=== PATIENT | female | born 1995 | race Caucasian/White ===

== ENCOUNTER 2023-06-06 09:17 | Emergency (ER) | payer OTHER, SELFPAY ==
[2023-06-06 09:23] VITALS: BP 122/86
--- NOTE | 2023-06-06 09:54 | ED.GENMED ---
History of Present Illness
General
Chief Complaint: Back Pain
Source: patient
Exam Limitations: none
Time Seen by Provider: 06/06/23 09:34
Nursing documentation reviewed up to this point in time: agreed with
Travel History
Have you had any contact with someone who has COVID-19?: No
Do you have any symptoms of coronavirus? Fever > 100 degrees, chills, cough, shortness of breath, sore throat, loss of taste or smell, muscle aches, or headache?: No
History of Present Illness
History of Present Illness:
28-year-old female past medical history of previous hepatitis C fully treated at this point, anxiety depression previous substance abuse presenting to the emergency department today with concerns of low back discomfort starting yesterday denies any
specific inciting event. No significant radiation of pain made worse with movements and positioning. Denies urinary symptoms or changes in bowel movements fevers chest pain shortness of breath.
Past History
Past History
ED Past Medical History: Other (Hep C); Negative Asthma, HTN, Hypercholesterolemia or NIDDM
ED Past Surgical History: Gynecological (D&C)
Social History
Tobacco: Former smoker
Alcohol: None
Drug: None
Personal: Single
Living: with family
Employment: Other
Family History
Family History: Other (Noncontributory)
Review of Systems
Review of Systems
Allergies reviewed?: Yes
All Other Systems: ROS reviewed and negative except as documented in HPI and ROS
Phy Exam
Physical Exam
Physical Exam:
GENERAL: Alert , in no apparent distress
EYE: pupils equal and reactive
NECK: Supple, no significant adenopathy.
ENT: o/p clr, mmm.
CARDIAC: Regular rate and rhythm .
LUNGS: Clear breath sounds bilaterally, no acute respiratory distress, no wheezes/rales/rhonchi
ABDOMEN: Soft, without focal tenderness, no r/g, no cvat
NEUROLOGICAL: Alert and oriented, no focal neuro deficits
SKIN: Warm and dry, skin intact.
MUSCULOSKELETAL: No edema, well perfused.
PSYCH: Normal and appropriate interaction.
Course
Orders/Labs/Results
Orders:
Orders
06/06/23 09:53
Ibuprofen [Motrin] 800 mg PO NOW STA
Test Result ONCE
Lumbar Spine, 2 or 3 View [CR Lumbar Spine 2 Or 3 Views] Urgent
Comment:
Reason For Exam: low back pain, new
06/06/23 10:00
HCG, Urine Qualitative Screen Urgent
Date Specimen was Collected: 06/06/23
Time Specimen was Collected: 09:55
Urinalysis Urgent
Date Specimen was Collected: 06/06/23
Time Specimen was Collected: 09:55
Urine Microscopic Urgent
Date Specimen was Collected: 06/06/23
Time Specimen was Collected: 09:55
Abnormal Lab Results
06/06/23
10:00
Urine Occult Blood Trace A
(Negative)
Ur Leukocyte Esterase 1+ A
(Negative)
Urine WBC 6-10 A /HPF
(0-5)
Urine Bacteria Moderate A
(Negative)
Vital Signs
Initial and Last Documented VS:
Initial Vital Signs
Temp Pulse Resp BP Pulse Ox
97.9 F 70 16 122/86 97
06/06/23 09:23 06/06/23 09:23 06/06/23 09:23 06/06/23 09:23 06/06/23 09:23
Last Documented Vital Signs
Temp Pulse Resp BP Pulse Ox
97.9 F 70 16 122/86 97
06/06/23 09:23 06/06/23 09:23 06/06/23 09:23 06/06/23 09:23 06/06/23 09:23
MDM/Problems Addressed
MDM/Problems Addressed:
28-year-old female presenting to the emergency department today with concerns of low back pain over the past 2 days. Denies specific inciting event. Feels that there are muscle spasms to her low back. Denies specific injury denies any recent
fevers, numbness weakness change in bowel movements or urination. No red flag symptoms of back pain seems to be mechanical back pain. Patient is not x-ray without signs of emergent pathology patient generally well-appearing stable for
outpatient management return precautions given.
*Critical Care Note
Total Time (30-74mins, 75-104mins- exclusive of procedures): Not Applicable
ED Attending Note
-
Portions of this chart may have been created with voice recognition software.� Occasional wrong word or��sound alike� substitutions may have occurred due to the inherent limitations of voice recognition software.
Discharge Plan
Departure
Patient Disposition: Home (Routine Discharge)
Date of Disposition: 06/06/23
Time of Disposition: 12:15
Patient with high blood pressure during this ER visit?: No
Condition: Good
Covid-19: Not Applicable
Discharge Problem:
Low back pain
Instructions: Low Back Pain (DC)
Prescriptions:
New
cyclobenzaprine 10 mg tablet
10 mg PO HS PRN (Reason: muscle spasm) Qty: 7 0RF
ibuprofen 600 mg tablet
600 mg PO Q6H PRN (Reason: Pain) Qty: 14 0RF
No Action
prenat.vits,liz,qia-ykjz-fmfjl Tablet
1 tab PO DAILY
acetaminophen 325 mg Tablet
650 mg PO Q4HPRN PRN (Reason: mild pain) Qty: 0 0RF
sennosides-docusate sodium [Stool Softener-Stimulant Laxat] 8.6-50 mg Tablet
1 tab PO DAILYPRN PRN (Reason: constipation) Qty: 0 0RF
ibuprofen 600 mg Tablet
600 mg PO Q6HPRN PRN (Reason: moderate pain/cramps) Qty: 45 0RF
Referrals:
Vick Degroot MD [Family Provider] -
Activity Restrictions/Additional Instructions:
You came to the emergency department today with concerns of back pain. You had a normal x-ray and reassuring urinalysis. Please follow closely with your primary care doctor for further assessment. Return to the emergency department for any
worsening, new or concerning symptoms.
Interventions
Interventions:
*General Assessment Last Done: 06/06/23 09:23
ED- Fall Risk Assessment Last Done: 06/06/23 09:29
*ED COVID-19 Vaccine History Last Done: 06/06/23 09:23
ED-Musculoskeletal Assessment Last Done: 06/06/23 09:29
[2023-06-06] MEDS: MOTRIN 800 MG PO (09:59)
[2023-06-06 10:13] LABS: Urine Albumin Negative (Neg - Trace); Urine Bilirubin Negative (Negative); Urine Character Clear (Clear); Urine Color Yellow; Urine Glucose Negative (Negative); Urine Ketone Negative (Negative); Urine Leukocyte 1+ (Negative); Urine Nitrite Negative (Negative); Urine Occult Blood Trace (Negative); Urine Urobilinogen Negative (Neg - 1+); Urine pH 6.5 (5.0-9.0)
[2023-06-06 10:21] LABS: HCG, Urine Qualitative Screen Negative
[2023-06-06 10:34] LABS: Urine Bacteria Moderate (Negative); Urine Red Blood Cell 0-2 /HPF (0-2); Urine Urothelial Cell 0-2 /LPF (FEW)
== END 2023-06-06 12:20 | disposition home or self-care (01) ==
LOC: EMR 09:17
PROVIDERS: Physician Assistant; EMERGENCY PHYSICIAN Emergency Medicine; FAMILY PHYSICIAN Internal Medicine
DX: M54.50 Low back pain, unspecified (principal); Z87.891 Personal history of nicotine dependence
CPT/HCPCS: 99284; 72100; 81003; 81015; 81025

== ENCOUNTER 2024-01-27 06:34 | Day surgery (SDC) | payer OTHER, SELFPAY ==
[2024-01-20 10:05] VITALS: BMI 29.6
[2024-01-20 10:44] LABS: % Basophils 0.6 % (0-2); % Eosinophils 3.9 % (0-6); % Immature Granulocytes 0.2 % (0-0.5); % Lymphocytes 35.5 % (20.5-51.1); % Monocytes 8.3 % (1.7-9.3); % Neutrophils 51.5 % (42.2-75.2); Absolute Eosinophils 0.2 10^3/uL (0-0.7); Absolute Lymphocytes 1.9 10^3/uL (1.2-3.4); Absolute Monocytes 0.5 10^3/uL (0.1-0.6); Absolute Neutrophils 2.8 10^3/uL (1.4-6.5); Mean Corp Hgb Conc. 34.1 g/dL (33.0-37.0); Mean Corpuscular Volume 90.9 fL (81.0-99.0); Mean Platelet Volume 11.6 fL (7.4-10.4); Nucleated Red Blood Cells % 0 %; Platelet Count 161 10^3/uL (130-400); Red Blood Cell Count 4.51 10^6/uL (4.20-5.40); Red Cell Dist. Width 12.8 % (11.5-14.5); White Blood Cell Count 5.4 10^3/uL (4.8-10.8)
[2024-01-20 10:44] LABS: HCG, Urine Qualitative Screen Negative
[2024-01-27] VITALS (12 sets, daily range): BP systolic 95–137; BP diastolic 60–76; BMI 29.6
[2024-01-27] MEDS: NORMOSOL-R/PLASMALYTE-A 1000 IV (08:26)
[2024-01-27] MEDS: DILAUDID 0.5 MG IV (09:56)
[2024-01-27] MEDS: DILAUDID 0.25 MG IV ×2 (10:08→10:26)
[2024-01-27] MEDS: ZOFRAN 4 MG IV (11:18)
[2024-01-27] MEDS: COMPAZINE 5 MG IV (12:35)
== END 2024-01-27 12:47 | disposition home or self-care (01) ==
LOC: SDS 06:34
PROVIDERS: ATTENDING PHYSICIAN Obstetrics & Gynecology; FAMILY PHYSICIAN Internal Medicine
DX: Z30.2 Encounter for sterilization (principal); Z90.79 Acquired absence of other genital organ(s)
CPT/HCPCS: 58661; 88302; 36415; 81025; 85025; 85610; 85730; C1776